=== PATIENT | female | born 1995 | race Caucasian/White ===

== ENCOUNTER 2016-11-29 23:26 | Emergency (ER) | payer OTHER ==
--- NOTE | 2016-11-30 01:07 | PD ---
HPI Chief Complaint abdominal pain, vaginal discharge Date Seen: Nov 30, 2016 Time Seen: 00:45 Travel History International Travel<30 Days: No Contact w/Intl Traveler<30Days: No Known Affected Area: No History of Present Illness HPI Pt is a 20 y/o G1 with IUP at 26.2 wks by stated BRIAN who presents with c/o constant sharp abdominal pain at umbilicus. Pain started this morning. Pt also c/o white vaginal discharge for past few days which has some odor. She denies vaginal irritation or itching. She reports a h/o chlamydia a few years ago, states she tested negative for GC/CT earlier in . Pt denies contractions, vb, lof. +FM. Pt getting care at [facility]. Para: 0 : 1 History Past Medical History Medical History: Denies Significant Hx Past Surgical History Surgical History: No Previous Surgery Family History Family History: Negative Social History Alcohol Use: No Tobacco Use: No Substance Abuse: No Allergies-Medications (Allergen,Severity, Reaction): Coded Allergies: Shellfish (Verified Allergy, Unknown, 11/30/16) Narrative Medication PNV Review of Systems General / Constitutional: No: Fever, Weight Gain, Weight Loss, Chills, Other Eyes: No: Diploplia, Blurred Vision, Visual changes, Pain, Photophobia, Other HENT: No: Headaches, Vertigo, Dental Difficulties, Lightheadedness, Other Cardiovascular: No: Irregular Rhythm, Chest Pain or Discomfort, Palpitations, Tachycardia, Syncope, Varicosities, Edema, Cyanosis, Other Respiratory: No: Cough, Short of Breath, Wheezing, Other Gastrointestinal: No: Nausea, Vomiting, Diarrhea, Abdominal Pain, Hematemesis, Hematochezia, Constipation, Changes in Bowel Habits, Indigestion, Loss of Appetite, Other Genitourinary: No: Urgency, Frequency, Dysuria, Nocturia, Hematuria, Decreased Urinary Output, Oliguria, Hesitancy, Dribbling, Incontinence, Pelvic Pain, Dyspareunia, Discharge, Menorrhagia, Vaginal Bleeding, Other Musculoskeletal: No: Limited ROM, Weakness, Cramping, Edema, Pain, Other Skin: No Rash, No Itching, No Dryness, No Lumps, No Change in Pigmentation, No Change in Nails, No Alopecia, No Lesions, No Breast Lumps, No Breast Tenderness , No Breast Swelling, No Other Neurologic: No: Weakness, Dizziness, Syncope, Focal Abnormalities, Coordination Problem, Headache, Slurred Speech, Seizures, Other Psychiatric: No: Anxiety, Depression, Suicidal Ideations, Disorder of Thought, Mood Disorder, Substance Abuse, Homicidal Ideation, Other Endocrine: No: Heat Intolerance, Cold Intolerance, Polydipsia, Polyuria, Other Hematologic/Lymphatic: No Easy Bruising, No Lymph Node Enlargement, No Other Physical Exam 106/65, 79, 18, 98.9 Narrative GENERAL: Well-nourished, well-developed patient. SKIN: Warm and dry. HEAD: Normocephalic and atraumatic. EYES: No scleral icterus. No injection or drainage. ENT: No nasal drainage noted. Mucous membranes pink. Airway patent. NECK: Supple, trachea midline. No JVD. CARDIOVASCULAR: Regular rate and rhythm without murmurs, gallops, or rubs. RESPIRATORY: Breath sounds equal bilaterally. No accessory muscle use. ABDOMEN/GI: Abdomen soft, mildly tender to palpation at umbilicus, no hernia palpated, bowel sounds present, no rebound, no guarding Gravid GENITOURINARY: External Genitalia: intact and normal in appearance BUS glands: [wnl] Cervix: visually closed, small amount of homogeneous white discharge present in vault. no vaginal/cervical lesions noted. Dilatation: closed Effacement: long Station: high Presentation: - Membranes: intact Uterine Contractions: irritability FHT's: Category: 1 Baseline: 130s Reactive: yes Variability: mod Decels: no EXTREMITIES: No cyanosis or edema. BACK: Nontender without obvious deformity. No CVA tenderness. NEUROLOGICAL: Awake and alert. Motor and sensory grossly within normal limits. Five out of 5 muscle strength in all muscle groups. Normal speech. Data Data Vital Signs Reviewed: Yes Orders Vital Signs (Adult) .ON ADMISSION (11/30/16 00:51) ^ Labor Status (11/30/16 00:51) Wet Prep Profile (11/30/16 00:51) Gc And Chlamydia Pcr (11/30/16 00:51) MDM Medical Record Reviewed: No (none available) Narrative Course / MDM 20 y/o G1 with IUP at 26.2 wks with umbilical pain and vaginal discharge --no pathology noted on abdominal exam. --wet prep and GC/CT collected; will treat any infection if indicated and d/c home keep next OB appt as scheduled. Diagnosis Diagnosis: Primary Impression: Vaginal discharge during in third trimester Additional Impression: 26 weeks gestation of Disposition: 01 DISCHARGE HOME Patient Instructions: Abdominal Pain in (ED), General Instructions Kira Bliss MD Nov 30, 2016 01:07
[2016-11-30] MEDS ORDERED: DIFL150T PO (01:23)
[2016-11-30 02:49] LABS: CHLAMYDIA PCR NOT DETECTED (NOT DETECT); NEISSERIA PCR NOT DETECTED (NOT DETECT)
== END 2016-11-30 03:06 | disposition home or self-care (01) ==
LOC: HOBED 23:26
DX: O26.892 Other specified pregnancy related conditions, second trimester (principal); N89.8 Other specified noninflammatory disorders of vagina; R10.33 Periumbilical pain; Z3A.26 26 weeks gestation of pregnancy
CPT/HCPCS: 87210; 87491; 87591; 99284

== ENCOUNTER 2017-01-28 13:27 | Emergency (ER) | payer OTHER ==
[~2017-01-28 13:27] MED LIST: DIFL150T PO
--- NOTE | 2017-01-28 14:23 | PD ---
HPI Chief Complaint contractions Date Seen: Jan 28, 2017 Time Seen: 14:15 Travel History International Travel<30 Days: No Contact w/Intl Traveler<30Days: No Known Affected Area: No History of Present Illness HPI Pt is a 21 yo with EDC 03-06-2017, making her 34 weeks and 5 days . She reports abdominal pain that started gradually and has continued since about 6 o clock this morning. Pain is intermittent lasting for less than a minute. No vaginal leaking or bleeding. Active FMs. No urinary symptoms. No diarrhea or constipation. Para: 0 : 1 Miscarriage: 0 : 0 History Past Medical History Medical History: Denies Significant Hx Past Surgical History Surgical History: No Previous Surgery Social History Alcohol Use: No Tobacco Use: No Substance Abuse: No Allergies-Medications (Allergen,Severity, Reaction): Coded Allergies: shellfish derived (Unverified Allergy, Unknown, 01/24/17) Home Meds Active Scripts Fluconazole (Diflucan)150 Mg [id number] Mg PO ONCE #1 TAB Ref 0 Prov:Kira Bliss MD 11/30/16 Review of Systems Except as stated in HPI: all other systems reviewed are Neg Physical Exam Narrative GENERAL: Well-nourished, well-developed patient. SKIN: Warm and dry. HEAD: Normocephalic and atraumatic. EYES: No scleral icterus. No injection or drainage. ENT: No nasal drainage noted. Mucous membranes pink. Airway patent. NECK: Supple, trachea midline. No JVD. CARDIOVASCULAR: Regular rate and rhythm without murmurs, gallops, or rubs. RESPIRATORY: Breath sounds equal bilaterally. No accessory muscle use. BREASTS: Bilateral exam showed no masses , no retractions, no nipple discharge. ABDOMEN/GI: Abdomen soft, non-tender, bowel sounds present, no rebound, no guarding Gravid to [35] weeks size Fundal Height: [35] GENITOURINARY: External Genitalia: intact and normal in appearance BUS glands: [-] Cervix: [soft] Dilatation: [closed] Effacement: [50%] Station: [-3] Presentation: [vertex] Membranes: [intact or ruptured] Uterine Contractions: [rare-] No cahange after repeat exam FHT's: Category: [-] Baseline: [-] Reactive: [-] Variability: [-] Decels: [-] EXTREMITIES: No cyanosis or edema. BACK: Nontender without obvious deformity. No CVA tenderness. NEUROLOGICAL: Awake and alert. Motor and sensory grossly within normal limits. Five out of 5 muscle strength in all muscle groups. Normal speech. Data Data Vital Signs Reviewed: Yes [facility] Medical Record Reviewed: Yes Interpretation(s) Premature contractions at 34 weeks and 5 days Cervix closed, No cervical change after more than 1 hour Diagnosis Diagnosis: Primary Impression: False labor before 37 completed weeks of gestation during in third trimester, antepartum Disposition: 01 DISCHARGE HOME Isaak Jones MD Jan 28, 2017 14:23
[2017-01-28 14:30] VITALS: RESP 16
[2017-01-28] MEDS ORDERED: ACETAMINOPHEN 325 MG TAB PO ONE (15:00)
== END 2017-01-28 16:15 | disposition home or self-care (01) ==
LOC: HOBED 13:27
DX: O47.03 False labor before 37 completed weeks of gestation, third trimester (principal); Z3A.34 34 weeks gestation of pregnancy
CPT/HCPCS: 59025; 82731; 99282

== ENCOUNTER 2017-02-18 15:44 | Inpatient (IN) | payer OTHER ==
[2017-02-18] VITALS (47 sets, daily range): BP systolic 103–141; BP diastolic 66–98; PULSE 57–150; RESP 16–18; TEMP 97.4–99.2
[~2017-02-18] VITALS: Ht 157.5 cm; Wt 74.1 kg
[2017-02-18] MEDS: LACTATED RINGER'S 1000 ML INJ 1,000 ML IV SCH (15:56)
[2017-02-18] MEDS ORDERED: LACTATED RINGER'S 1000 ML INJ 1,000 ML IV PRN (15:56)
[2017-02-18] MEDS ORDERED: MEASLES, MUMPS, RUBELLA VACCINE 0.5 ML VIAL SQ ONE (16:00)
[2017-02-18] MEDS ORDERED: CITRIC ACID-SODIUM CITRATE LIQ 30 ML UDC PO SCH (16:00)
[2017-02-18] MEDS ORDERED: DIPHTH/TETANUS/ACEL PERTUSSIS (BOOSTER) 0.5 ML VIAL/PFS IM ONE (16:00)
[2017-02-18] MEDS ORDERED: MINERAL OIL 10 ML VIAL TOPICAL PRN (16:00)
[2017-02-18] MEDS ORDERED: LIDOCAINE HCL 1% 50 ML VIAL I-DERMAL PRN (16:00)
[2017-02-18] MEDS ORDERED: OXYTOCIN 30 UNITS-500ML PREMIX 500 ML IV ONE (16:00)
[2017-02-18] MEDS ORDERED: SODIUM CHLORID 0.9% 500 ML INJ 500 ML IV PRN (16:00)
[2017-02-18] MEDS ORDERED: LIDOCAINE HCL 1% 50 ML VIAL INFIL PRN (16:00)
[2017-02-18] MEDS ORDERED: ONDANSETRON HCL 4 MG/2 ML VIAL IV PRN (16:00)
--- NOTE | 2017-02-18 16:06 | HHI.HP ---
HPI Chief Complaint 21 yo female at [id number] based on EDC 03/06/17 here via [facility] for contractions. Date Seen: Feb 18, 2017 Time Seen: 16:01 Travel History International Travel<30 Days: No Contact w/Intl Traveler<30Days: No Known Affected Area: No History of Present Illness HPI at [id number] here via [facility] with BRIAN 03/06/2017 for contraction for past 2 hours. Receives care in [facility] and denies complications. Unknown GBS but it was done 1 weeks ago in the office. Weeks Gestation: 37 Para: 0 : 1 History Past Medical History Medical History: Denies Significant Hx Past Surgical History Surgical History: No Previous Surgery Family History Family History: Negative Social History Alcohol Use: No Tobacco Use: No Substance Abuse: No Allergies-Medications (Allergen,Severity, Reaction): Coded Allergies: shellfish derived (Unverified Allergy, Unknown, 01/24/17) Home Meds Active Scripts Fluconazole (Diflucan) 150 Mg Tab, 150 MG PO ONCE for Infection, #1 TAB 0 Refills Prov:Kira Bliss MD 11/30/16 Review of Systems Except as stated in HPI: all other systems reviewed are Neg Physical Exam Narrative GENERAL: Well-nourished, well-developed patient. SKIN: Warm and dry. HEAD: Normocephalic and atraumatic. EYES: No scleral icterus. No injection or drainage. ENT: No nasal drainage noted. Mucous membranes pink. Airway patent. NECK: Supple, trachea midline. No JVD. CARDIOVASCULAR: Regular rate and rhythm without murmurs, gallops, or rubs. RESPIRATORY: Breath sounds equal bilaterally. No accessory muscle use. ABDOMEN/GI: Abdomen soft, non-tender, bowel sounds present, no rebound, no guarding Gravid to [38-] weeks size Fundal Height: [-] GENITOURINARY: External Genitalia: intact and normal in appearance BUS glands: nl Cervix: mid Dilatation: 4 Effacement: 100 Station: -2 Presentation: vtx Membranes: [intact Uterine Contractions: q5min FHT's: Category: 1 Baseline: 140 Reactive: mod Variability: mod Decels: absent EXTREMITIES: No cyanosis or edema. BACK: Nontender without obvious deformity. No CVA tenderness. NEUROLOGICAL: Awake and alert. Motor and sensory grossly within normal limits. Five out of 5 muscle strength in all muscle groups. Normal speech. Caprini VTE Risk Assessment Caprini VTE Risk Assessment: No/Low Risk (score <= 1) Caprini Risk Assessment Model Point Value = 1 Point Value = 2 Point Value = 3 Point Value = 5 Age 41-60 Minor surgery BMI > 25 kg/m2 Swollen legs Varicose veins or History of unexplained or recurrent spontaneous Oral contraceptives or hormone replacement Sepsis (< 1 month) Serious lung disease, including pneumonia (< 1 month) Abnormal pulmonary function Acute myocardial infarction Congestive heart failure (< 1 month) History of inflammatory bowel disease Medical patient at bed rest Age 61-74 Arthroscopic surgery Major open surgery (> 45 min) Laparoscopic surgery (> 45 min) Malignancy Confined to bed (> 72 hours) Immobilizing plaster cast Central venous access Age >= 75 History of VTE Family history of VTE Factor V Leiden Prothrombin [id number] Lupus anticoagulant Anticardiolipin antibodies Elevated serum homocysteine Heparin-induced thrombocytopenia Other congenital or acquired thrombophilia Stroke (< 1 month) Elective arthroplasty Hip, pelvis, or leg fracture Acute spinal cord injury (< 1 month) Prophylaxis Regimen Total Risk Factor Score Risk Level Prophylaxis Regimen 0-1 Low Early ambulation 2 Moderate Order ONE of the following: *Sequential Compression Device (SCD) *Heparin 5000 units SQ BID 3-4 Higher Order ONE of the following medications: *Heparin 5000 units SQ TID *Enoxaparin/Lovenox 40 mg SQ daily (WT < 150 kg, CrCl > 30 mL/min) *Enoxaparin/Lovenox 30 mg SQ daily (WT < 150 kg, CrCl > 10-29 mL/min) *Enoxaparin/Lovenox 30 mg SQ BID (WT < 150 kg, CrCl > 30 mL/min) AND/OR *Sequential Compression Device (SCD) 5 or more Highest Order ONE of the following medications: *Heparin 5000 units SQ TID (Preferred with Epidurals) *Enoxaparin/Lovenox 40 mg SQ daily (WT < 150 kg, CrCl > 30 mL/min) *Enoxaparin/Lovenox 30 mg SQ daily (WT < 150 kg, CrCl > 10-29 mL/min) *Enoxaparin/Lovenox 30 mg SQ BID (WT < 150 kg, CrCl > 30 mL/min) AND *Sequential Compression Device (SCD) Data Data Vital Signs Reviewed: Yes Orders Orders Admit To Inpatient (02/18/17 ) Vital Signs (Adult) .Per protocol (02/18/17 15:56) Heart (02/18/17 15:56) Amnioinfusion (02/18/17 15:56) Urinary Catheter Management .ONCE (02/18/17 15:56) Diet Liquid (02/18/17 Dinner) Lactated Ringer's 1000 Ml Inj (Lr 1000 M (02/18/17 15:56) Lactated Ringer's 1000 Ml Inj (Lr 1000 M (02/18/17 15:56) Sodium Chlorid 0.9% 500 Ml Inj (Ns 500 M (02/18/17 16:00) Sodium Chlor 0.9% 1000 Ml Inj (Ns 1000 M (02/18/17 16:16) Lidocaine 1% Inj (50 Ml) (Xylocaine 1% I (02/18/17 16:00) Citric Acid-Sodium Citrate Liq (Bicitra (02/18/17 16:00) Ondansetron Inj (Zofran Inj) (02/18/17 16:00) Fentanyl Inj (Fentanyl Inj) (02/18/17 16:00) Fentanyl Inj (Fentanyl Inj) (02/18/17 16:00) Complete Blood Count With Diff (02/18/17 15:56) Hold Clot (02/18/17 15:56) Abo/Rh Blood Type (02/18/17 15:56) Urinalysis - C+S If Indicated (02/18/17 15:56) Rapid Plasma Regin (Rpr) W Ttr (02/18/17 15:56) Resp Oxygen Non Rebreathe Mask (02/18/17 ) ^ Epidural / Intrathecal Infus (02/18/17 15:56) Oxytocin 30 Units-500ml Premix (Pitocin (02/18/17 16:00) Lidocaine 1% Inj (50 Ml) (Xylocaine 1% I (02/18/17 16:00) Light Mineral Oil (Muri-Lube Oil) (02/18/17 16:00) Ob/Psych Drug Screen, Urine (02/18/17 15:56) Inpatient Certification (02/18/17 ) Assessment/Plan Problem List: (1) 37 weeks gestation of ICD Codes: Z3A.37 - 37 weeks gestation of (2) Irregular uterine contractions ICD Codes: O62.2 - Other uterine inertia Assessment and Plan 37-38 weeks gestationa here in labor UDS per protocol Admit for labor Patient's family will bring records Unknown GBS will treat for risk factors Divina Jarvis MD Feb 18, 2017 16:06
[2017-02-18] MEDS ORDERED: PREN29TA PO (16:07)
[2017-02-18 16:08] LABS: BASOPHIL % 0.6 % (0.0-2.0); EOSINOPHIL % 0.4 % (0.0-4.0); HEMATOCRIT 35.8 % (35.0-46.0); HEMO FLAGS DIFF FINAL; LYMPH % 23.7 % (9.0-44.0); LYMPHOCYTE # 1.8 TH/MM3 (1.0-4.8); MEAN CELL VOLUME 86.6 FL (80.0-100.0); MEAN CORPUSCULAR HEMOGLOBIN 29.4 PG (27.0-34.0); MEAN CORPUSCULAR HGB CONC 33.9 % (32.0-36.0); MONO % 11.4 % (0.0-8.0); NEUT % 63.9 % (16.0-70.0); PLATELET COUNT 208 TH/MM3 (150-450); RED BLOOD COUNT 4.14 MIL/MM3 (4.00-5.30); WHITE BLOOD COUNT 7.8 TH/MM3 (4.0-11.0)
[2017-02-18] MEDS ORDERED: SODIUM CHLOR 0.9% 1000 ML INJ 1,000 ML IV PRN (16:16)
[2017-02-18 16:19] LABS: BACTERIA, URINE RARE /hpf; BLOOD, URINE NEG (NEG); GLUCOSE,URINE NEG (NEG); KETONE, URINE NEG (NEG); MUCUS URINE FEW /lpf (OCC); NITRITE,URINE NEG (NEG); SQUAMOUS EPITHELIAL CELL URINE 1 /hpf (0-5); URINE COLOR YELLOW (YELLW/STRAW)
[2017-02-18 16:20] LABS: COMMENT (UR) CULT NOT INDICATED; CULTURE IF INDICATED CULT NOT INDICATED
[2017-02-18] MEDS ORDERED: fentaNYL 2MCG-BUPIV 0.125% INJ 100 ML ONE (16:20)
[2017-02-18] MEDS ORDERED: ePHEDrine/NS 25 MG/5 ML SYR ONE (16:57)
[2017-02-18] MEDS ORDERED: TERBUTALINE INJ 1 MG/ML AMP ONE (17:00)
--- NOTE | 2017-02-18 17:06 | HHI.PR ---
FLUID POWER MECHANIC Note Note Patient s/p epidural with slight hypotension resulting in bradycardia to 80 x 3-4 minutes. After ephedrine, fluid bolus, and position changes FHR has recovered to baseline of 135 with mod variability. BP initally 108/60, now 130/ 82. Cervix 7-8/100/-2, AROM with copious clear fluid obtained. Divina Jarvis MD Feb 18, 2017 17:06
[2017-02-18] MEDS ORDERED: DO NOT ADMINISTER ANTICOAGULANTS PRN (18:45)
[2017-02-18] MEDS ORDERED: ePHEDrine/NS 25 MG/5 ML SYR IV PRN (18:45)
[2017-02-18] MEDS ORDERED: NO SYSTEM NARCOTICS PRN (18:45)
[2017-02-18] MEDS ORDERED: DOCUSATE SODIUM 50 MG/SENNA 8.6 MG TAB PO PRN (19:00)
[2017-02-18] MEDS ORDERED: ALUMINUM/MAGNESIUM/SIMETH 30 ML CUP PO PRN (19:00)
[2017-02-18] MEDS ORDERED: OXYTOCIN 30 UNITS-500ML PREMIX 500 ML IV SCH (19:00)
[2017-02-18] MEDS ORDERED: oxyCODONE/ACETAMINOPHEN 5 MG/325 MG TAB PO PRN ×2 (19:00)
[2017-02-18] MEDS ORDERED: fentaNYL 2MCG-BUPIV 0.125% 100 ML EPIDURAL SCH (19:00)
[2017-02-18] MEDS ORDERED: SODIUM CHLORIDE 0.9% FLUSH 10 ML FLUSH IV FLUSH PRN (19:00)
[2017-02-18] MEDS ORDERED: ONDANSETRON ODT 4 MG TAB PO PRN (19:00)
--- NOTE | 2017-02-18 19:52 | PD.OB.DELI ---
Weeks gestation: 37 Gest age assessed date: Feb 18, 2017 Gest age assessed time: 13:00 Pt started active labor?: Yes Active labor start date: Feb 18, 2017 Medical induction of labor?: No Artificial rupture of membrane: Yes Artificial ROM date: Feb 18, 2017 Artifical ROM time: 13:30 Anesthesia: Epidural Episiotomy: None Vaginal Delivery: Normal, Spontaneous Presentation: Occiput anterior Nuchal Cord: x1 Delayed cord clamping (45 sec): Yes : Male Delivery date: Feb 18, 2017 Delivery time: 18:37 One Minute : 8 Five Minute : 9 Weight: 2885 Placenta: Spontaneous delivery, Intact, 3 vessel cord Laceration: No lacerations Estimated blood loss: 200cc Divina Jarvis MD Feb 18, 2017 19:52
[2017-02-18] MEDS ORDERED: ERYTHROMYCIN 0.5% OPTH OINT 1 GM TUBO EACH EYE ONE (21:00)
[2017-02-18] MEDS: ACETAMINOPHEN 325 MG TAB PO PRN (21:31)
[2017-02-18] MEDS: WITCH HAZEL 50%/GLYCERIN 12.5% 40 PAD JAR TOPICAL PRN (21:32)
[2017-02-18] MEDS: BENZOCAINE 20% TOPICAL SPRAY 60 ML CAN TOPICAL PRN (21:32)
[2017-02-19 02:55] VITALS: TEMP 98.4
[2017-02-19] MEDS: LACTATED RINGER'S 1000 ML INJ 1,000 ML IV SCH ×3 (07:56→23:43)
--- NOTE | 2017-02-19 07:59 | HHI.OB ---
Subjective Remarks 21 year old PPD 1 after spontaneous vaginal delivery last night at 18:37. No acute events overnight. Reports no pain this morning. Has lochia that is about the amount of a menstrual period. Plans on getting an IUD for control. Plans to follow with OBGYN in [place]. Has not had a bowel movement yet. Urinating normally. Getting up and walking around. No lacerations during delivery. Objective Vitals/I&O Vital Signs Date Time Temp Pulse Resp B/P (MAP) Pulse Ox O2 Delivery O2 Flow Rate FiO2 02/19/17 02:55 98.4 02/18/17 21:30 66 16 103/66 (78) 02/18/17 21:30 99.2 02/18/17 19:33 97.4 122 18 113/80 (91) 02/18/17 19:18 18 02/18/17 19:15 18 02/18/17 19:15 100 130/93 (105) 02/18/17 19:02 116 125/87 (100) 02/18/17 18:45 150 130/95 (107) 02/18/17 18:45 18 02/18/17 18:35 57 02/18/17 18:30 76 120/81 (94) 02/18/17 18:30 91 02/18/17 18:25 82 02/18/17 18:20 94 02/18/17 18:15 106 02/18/17 18:15 114 113/77 (89) 02/18/17 18:10 107 02/18/17 18:05 120 02/18/17 18:05 113 02/18/17 18:00 96 132/96 (108) 02/18/17 18:00 94 02/18/17 18:00 96 02/18/17 17:55 92 02/18/17 17:55 91 02/18/17 17:50 104 02/18/17 17:50 100 02/18/17 17:45 85 02/18/17 17:45 92 02/18/17 17:45 89 124/82 (96) 02/18/17 17:40 84 02/18/17 17:40 85 02/18/17 17:35 88 02/18/17 17:35 88 02/18/17 17:30 86 02/18/17 17:30 89 120/77 (91) 02/18/17 17:30 89 02/18/17 17:25 84 02/18/17 17:25 83 02/18/17 17:20 87 126/74 (91) 02/18/17 17:20 89 02/18/17 17:20 86 02/18/17 17:15 82 18 121/86 (98) 02/18/17 17:15 81 02/18/17 17:15 91 02/18/17 17:10 87 02/18/17 17:10 80 02/18/17 17:10 80 136/87 (103) 02/18/17 17:05 67 120/98 (105) 02/18/17 17:05 68 02/18/17 17:05 90 02/18/17 17:01 76 141/79 (99) 02/18/17 17:00 69 02/18/17 17:00 66 02/18/17 16:59 66 118/84 (95) 02/18/17 16:57 74 106/72 (83) 02/18/17 16:55 81 02/18/17 16:55 80 02/18/17 16:55 78 113/69 (84) 02/18/17 16:51 96 110/82 (91) 02/18/17 16:50 81 02/18/17 16:50 81 02/18/17 16:45 88 02/18/17 16:45 82 121/75 (90) 02/18/17 16:45 81 02/18/17 16:43 82 114/78 (90) 02/18/17 16:42 18 02/18/17 16:40 85 02/18/17 16:40 85 02/18/17 16:37 89 114/75 (88) 02/18/17 16:35 102 02/18/17 16:35 104 02/18/17 16:30 97 02/18/17 16:30 101 02/18/17 16:25 100 02/18/17 16:23 98.1 02/18/17 16:20 91 02/18/17 16:15 97 02/18/17 16:10 95 02/18/17 16:05 99 02/18/17 16:00 106 02/18/17 15:55 103 Objective Remarks GENERAL: Sitting up in bed, no distress CARDIOVASCULAR: Regular rate and rhythm without murmurs, gallops, or rubs. RESPIRATORY: Breath sounds equal bilaterally. No accessory muscle use. ABDOMEN/GI: Abdomen soft, non-tender. Fundus: Firm, non-tender at umbilicus. GENITOURINARY: Light to moderate bleeding. EXTREMITIES: No cyanosis or edema, non-tender, without signs of DVT. Medications and IVs Current Medications Medications (Trade) Dose Ordered Sig/Vanessa Route Start Time Stop Time Status Last Admin Lactated Ringer's 1,000 ml @ 125 mls/hr Q8H IV 02/18/17 15:56 02/18/17 15:56 Lactated Ringer's 1,000 ml @ 3,000 mls/hr Q20M PRN IV 02/18/17 15:56 Sodium Chloride 500 ml @ 1,000 mls/hr ONCE PRN IV 02/18/17 16:00 02/20/17 15:59 Sodium Chloride 1,000 ml @ 100 mls/hr Q10H PRN IV 02/18/17 16:16 (Xylocaine 1% Inj (50 ml)) 0.1 ml UNSCH X1 PRN I-DERMAL 02/18/17 16:00 02/21/17 15:59 (Bicitra Liq) 30 ml ELECT[employer] RECORDS SPECIALIST PO 02/18/17 16:00 02/22/17 15:59 (Zofran Inj) 4 mg Q6H PRN IV 02/18/17 16:00 (fentaNYL INJ) 50 mcg Q1H PRN IV PUSH 02/18/17 16:00 (fentaNYL INJ) 100 mcg Q1H PRN IV PUSH 02/18/17 16:00 (Xylocaine 1% Inj (50 ml)) 10 ml UNSCH X1 PRN INFIL 02/18/17 16:00 02/20/17 15:59 (Muri-Lube Oil) 10 ml UNSCH PRN TOPICAL 02/18/17 16:00 Miscellaneous Information No systemic narcotics to be given except... UNSCH PRN .XX 02/18/17 18:45 02/19/17 18:44 Miscellaneous Information DO NOT ADMINISTER ANY ANTICOAGUL... UNSCH PRN .XX 02/18/17 18:45 02/19/17 18:44 Fentanyl/ Bupivacaine HCl 100 ml @ 12 mls/hr TITRATE EPIDURAL 02/18/17 19:00 02/18/17 19:13 (ePHEDrine/NS 25 MG/5 ML SYR) 10 mg UNSCH PRN IV 02/18/17 18:45 02/19/17 18:44 (NS Flush) 2 ml BID IV FLUSH 02/18/17 21:00 (NS Flush) 2 ml UNSCH PRN IV FLUSH 02/18/17 19:00 (Tylenol) 650 mg Q4H PRN PO 02/18/17 19:00 02/18/17 21:31 (Motrin) 600 mg Q6H PRN PO 02/18/17 19:00 (Percocet 5-325 Mg) 1 tab Q4H PRN PO 02/18/17 19:00 (Percocet 5-325 Mg) 2 tab Q4H PRN PO 02/18/17 19:00 (Americaine 20% Top Spr) 1 spray Q4H PRN TOPICAL 02/18/17 19:00 02/18/17 21:32 (Tucks Pads) 1 applic QID PRN TOPICAL 02/18/17 19:00 02/18/17 21:32 (Leslie-Colace) 2 tab Q12H PRN PO 02/18/17 19:00 (Mag-Al Plus Susp Liq) 15 ml Q8H PRN PO 02/18/17 19:00 (Zofran Odt) 4 mg Q6H PRN PO 02/18/17 19:00 Assessment/Plan Problem List: (1) Normal vaginal delivery ICD Codes: O80 - Encounter for full-term uncomplicated delivery Assessment and Plan 21 year old PPD 1 after spontaneous vaginal delivery - Percocet, Motrin PRN for pain control - Plans on IUD for control - Encourage breast feeding, currently breast and formula feeding - Plans to follow up with ObGYN in [place] for post- care - Encourage pelvic rest - Monitor Darrick Win MD R3 Feb 19, 2017 07:59
[2017-02-19 08:25] VITALS: BP 102/57; PULSE 80; RESP 18; TEMP 98.4; O2SAT 98
[2017-02-19] MEDS: IBUPROFEN 600 MG TAB PO PRN ×2 (08:34→16:31)
[2017-02-19] MEDS: SODIUM CHLORIDE 0.9% FLUSH 10 ML FLUSH IV FLUSH SCH ×2 (09:00→21:00)
[2017-02-19 21:05] VITALS: BP 115/74; PULSE 84; RESP 20; TEMP 97.9
[2017-02-19] MEDS ORDERED: IBUP-232 PO (22:51)
[2017-02-19] MEDS ORDERED: SENN1TAB PO (22:51)
--- NOTE | 2017-02-19 22:51 | HHI.DCPOC ---
Discharge Care Plan Diagnosis: (1) Normal vaginal delivery Report Symptoms to Your Doctor -Temperature above 100.5 degrees -Redness, of incision or excessive or foul smelling drainage -Unusual pain or calf pain -Increased vaginal bleeding -Painful or difficulty urinating -Feelings of extreme sadness or anxiety after 2 weeks Goals to Promote Your Health * To prevent worsening of your condition and complications * To maintain your health at the optimal level Directions to Meet Your Goals Take your medications as prescribed Follow your dietary instruction Follow activity as directed Ensure plenty of rest for recovery Drink fluids for hydration Keep your appointments as scheduled Take your immunizations and boosters as scheduled If your symptoms worsen call your PCP, if no PCP go to Urgent Care Center or Emergency Room Smoking is Dangerous to Your Health. Avoid second hand smoke Call the 24-hour crisis hotline for domestic abuse at Ward Haddad MD R2 Feb 19, 2017 22:51
[2017-02-20] MEDS: WITCH HAZEL 50%/GLYCERIN 12.5% 40 PAD JAR TOPICAL PRN (01:59)
[2017-02-20] MEDS: BENZOCAINE 20% TOPICAL SPRAY 60 ML CAN TOPICAL PRN (01:59)
[2017-02-20] MEDS: ACETAMINOPHEN 325 MG TAB PO PRN ×2 (02:00→08:29)
[2017-02-20] MEDS: IBUPROFEN 600 MG TAB PO PRN ×2 (02:04→08:29)
[2017-02-20] MEDS: LACTATED RINGER'S 1000 ML INJ 1,000 ML IV SCH (07:09)
--- NOTE | 2017-02-20 08:01 | HHI.OB ---
Subjective Post Day: 2 Remarks Pt seen and examined this morning. day # 2 AFVSS overnight. Decreased lochia. Denies dysuria. No breast tenderness. She is feeding the baby via breast and bottle. Appetite good. No nausea or vomiting. Patient has not yet had a bowel movement, but endorses bowel gas. Ambulating well. Denies calf pain or shortness of breath. Otherwise, she is doing well this morning and has no other concerns. (Ward Haddad MD R2) Remarks Patient seen and evaluated with resident under direct supervision, agree with assessment and plan. (Raymond Hines MD) Objective Vitals/I&O Vital Signs Date Time Temp Pulse Resp B/P (MAP) Pulse Ox O2 Delivery O2 Flow Rate FiO2 02/19/17 21:05 115/74 (88) 02/19/17 21:05 97.9 84 20 02/19/17 08:25 98.4 80 18 102/57 (72) 98 Objective Remarks GENERAL: Sitting up in bed, no distress CARDIOVASCULAR: Regular rate and rhythm without murmurs, gallops, or rubs. RESPIRATORY: Breath sounds equal bilaterally. No accessory muscle use. ABDOMEN/GI: Abdomen soft, non-tender. Fundus: Firm, non-tender at umbilicus. GENITOURINARY: Light to moderate bleeding. EXTREMITIES: No cyanosis or edema, non-tender, without signs of DVT. Medications and IVs Current Medications Medications (Trade) Dose Ordered Sig/Vanessa Route Start Time Stop Time Status Last Admin Lactated Ringer's 1,000 ml @ 125 mls/hr Q8H IV 02/18/17 15:56 02/18/17 15:56 Lactated Ringer's 1,000 ml @ 3,000 mls/hr Q20M PRN IV 02/18/17 15:56 Sodium Chloride 500 ml @ 1,000 mls/hr ONCE PRN IV 02/18/17 16:00 02/20/17 15:59 Sodium Chloride 1,000 ml @ 100 mls/hr Q10H PRN IV 02/18/17 16:16 (Xylocaine 1% Inj (50 ml)) 0.1 ml UNSCH X1 PRN I-DERMAL 02/18/17 16:00 02/21/17 15:59 (Bicitra Liq) 30 ml SYSTEM SPECIALIST PO 02/18/17 16:00 02/22/17 15:59 (Zofran Inj) 4 mg Q6H PRN IV 02/18/17 16:00 (fentaNYL INJ) 50 mcg Q1H PRN IV PUSH 02/18/17 16:00 (fentaNYL INJ) 100 mcg Q1H PRN IV PUSH 02/18/17 16:00 (Xylocaine 1% Inj (50 ml)) 10 ml UNSCH X1 PRN INFIL 02/18/17 16:00 02/20/17 15:59 (Muri-Lube Oil) 10 ml UNSCH PRN TOPICAL 02/18/17 16:00 Fentanyl/ Bupivacaine HCl 100 ml @ 12 mls/hr TITRATE EPIDURAL 02/18/17 19:00 02/18/17 19:13 (NS Flush) 2 ml BID IV FLUSH 02/18/17 21:00 (NS Flush) 2 ml UNSCH PRN IV FLUSH 02/18/17 19:00 (Tylenol) 650 mg Q4H PRN PO 02/18/17 19:00 02/20/17 02:00 (Motrin) 600 mg Q6H PRN PO 02/18/17 19:00 02/20/17 02:04 (Percocet 5-325 Mg) 1 tab Q4H PRN PO 02/18/17 19:00 (Percocet 5-325 Mg) 2 tab Q4H PRN PO 02/18/17 19:00 (Americaine 20% Top Spr) 1 spray Q4H PRN TOPICAL 02/18/17 19:00 02/20/17 01:59 (Tucks Pads) 1 applic QID PRN TOPICAL 02/18/17 19:00 02/20/17 01:59 (Leslie-Colace) 2 tab Q12H PRN PO 02/18/17 19:00 (Mag-Al Plus Susp Liq) 15 ml Q8H PRN PO 02/18/17 19:00 (Zofran Odt) 4 mg Q6H PRN PO 02/18/17 19:00 (Ward Haddad MD R2) Assessment/Plan Problem List: (1) Normal vaginal delivery ICD Codes: O80 - Encounter for full-term uncomplicated delivery Assessment and Plan 21 year old PPD 2 after spontaneous vaginal delivery - Motrin PRN for pain control - Plans on IUD for control - Encourage breast feeding, currently breast and formula feeding - Plans to follow up with ObGYN in [place] for post- care - Encourage pelvic rest - Monitor lochia DW: Dr. Hines Discharge Planning Today pending clinical course (Ward Haddad MD R2) Ward Haddad MD R2 Feb 20, 2017 08:01 Raymond Hines MD Feb 20, 2017 09:12
[2017-02-20 08:10] VITALS: BP 116/74; PULSE 88; RESP 18; TEMP 97.9
[2017-02-27 13:07] LABS: BATH SALTS (MDPV) UR NEG (NEG); ECSTASY (MDMA) UR NEG (NEG); GABAPENTIN UR NEG (NEG); HEROIN (6-ACETYLMORPHINE) UR NEG (NEG); HYDROMORPHONE U NEG (NEG); K2 SPICE UR NEG (NEG); OBMETHADONE UR NEG (NEG); PHENCYCLIDINE URINE NEG (NEG)
== END 2017-02-20 13:49 | disposition home or self-care (01) | DRG 775 ==
LOC: HOBED 15:44 → H2EA 15:52 → H1EA 20:33
PROVIDERS: ADMIT Obstetrics & Gynecology Obstetrics; ATTEND Obstetrics & Gynecology Obstetrics
PROC: 10E0XZZ Delivery of Products of Conception, External Approach (ICD-10-PCS; principal; 2017-02-18)
PROC: 10907ZC Drainage of Amniotic Fluid, Therapeutic from Products of Conception, Via Natural or Artificial Opening (ICD-10-PCS; 2017-02-18)
PROC: 3E0R33Z Introduction of Anti-inflammatory into Spinal Canal, Percutaneous Approach (ICD-10-PCS; 2017-02-18)
PROC: 00HU33Z Insertion of Infusion Device into Spinal Canal, Percutaneous Approach (ICD-10-PCS; 2017-02-18)
DX: O62.2 Other uterine inertia (principal); O26.53 Maternal hypotension syndrome, third trimester; Z37.0 Single live birth; O75.5 Delayed delivery after artificial rupture of membranes; O76 Abnormality in fetal heart rate and rhythm complicating labor and delivery; O69.81X0 Labor and delivery complicated by cord around neck, without compression, not applicable or unspecified; Z3A.37 37 weeks gestation of pregnancy
CPT/HCPCS: 59025; 80307; 81001; 85025; 86592; 86900; 86901; 90715; 99283; G0481; J2590; J3105; J7120